=== PATIENT | male | born 1965 | race African-American/Black ===

== ENCOUNTER 2017-01-04 16:25 | Emergency (ER) | payer OTHER ==
--- NOTE | ~2017-01-04 | CR142 ---
[facility] A Service of [facility] & [facility] RADIOLOGY TEXT RESULTS PATIENT: CASEY MULLEN LOCATION: CFTX : [id number] UNIT #: [id number] AGE: [address]: JARON DENNIS SEX: M ORDER DR: [id number] [facility] [address] [place], [place] [address] [id number] MR#: [id number] Acc #: [id number] NAME: CASEY MULLEN : 1965 SEX: M STUDY DATE/TIME: 01/04/2017 16:35 UNIT: [facility] ROOM: STUDY DESCRIPTION: CR Hand Min 3 Views Rt Attending Physician: Jaron Dennis A.P.R.N. Ordering Physician: Jaron Dennis A.P.R.N. Primary Care Physician: Alex Avila M.D. MEDICAL IMAGING REPORT This report is preliminary unless electronic signature is present EXAM Right hand INDICATION Right hand pain for 1 month. Pain near the third and fourth digits. FINDINGS 3 views of the right hand without comparison. There is no acute fracture or dislocation. Alignment is anatomic. No foreign body. There is some mild arthrosis at the base of the thumb at the carpal metacarpal articulation and the metacarpal phalangeal articulation. No foreign body. IMPRESSION 1. No acute findings. 2. Osteoarthritis at the base of the thumb. Dictated by... Montez Webber M.D. THIS IS AN ELECTRONICALLY VERIFIED REPORT Montez Webber M.D. at 01/05/2017 12:12 PM BÁRBARA/fito TD: 01/05/2017 08:36 JOB #: [id number] MEDICAL IMAGING REPORT COPY
== END 2017-01-04 17:56 | disposition home or self-care (01) ==
LOC: CFTX 16:25
DX: M77.9 Enthesopathy, unspecified (principal)
CPT/HCPCS: 73130; 96372; 99283; J1885